=== PATIENT | female | born 1940 | race Hispanic/Latino ===

== ENCOUNTER 2020-04-11 17:58 | Emergency (ER) | payer OTHER ==
[~2020-04-11] VITALS: Ht 160 cm; Wt 65.8 kg
[~2020-04-11 17:58] MED LIST: ANASTROZOLE1 MG PO; BENAZEPRIL-HCT1 EAC1 PO; COLACE100 MG PO; GLIMEPIRIDE2 MG PO; KRISTALOSE20 GM PO; MACRODANTIN100 MG PO; NIFEDIPINE ER30 M1 PO; SENNA LAXATIVE8.6 MG PO; ULTRAM 50MG50 MG PO; ULTRAM50 MG PO; ZOFRAN ODT4 MG PO
[2020-04-11 19:43] LABS: BASOPHILS # (AUTO) 0.1 (0.0-0.1); BASOPHILS % 0.7 % (0.0-1.0); EOSINOPHILS # (AUTO) 0.1 (0.0-0.4); EOSINOPHILS % 0.7 % (0.0-6.0); HEMATOCRIT 41.5 % (34.2-44.1); HEMOGLOBIN 13.2 g/dL (12.0-16.0); LYMPHOCYTES # (AUTO) 1.4 (1.0-3.2); LYMPHOCYTES % 20.2 % (18.0-39.1); MEAN CORPUSCULAR HGB CONC 31.8 g/dL (31-35); MEAN CORPUSCULAR VOLUME 88.1 fL (81-99); MONOCYTES # (AUTO) 0.7 (0.2-0.8); MONOCYTES % 10.5 % (4.4-11.3); NEUTROPHILS # (AUTO) 4.6 (2.1-6.9); NEUTROPHILS % 66.9 % (38.7-80.0); PLATELET COUNT 163 x10e3/uL (140-360); RED BLOOD COUNT 4.71 x10e6/uL (3.6-5.1)
--- NOTE | 2020-04-11 19:56 | Diagnostic Imaging Report ---
CT BRAIN WO HISTORY: Trauma COMPARISON: None. Technique: Noncontrast axial scans were obtained from skull base to the vertex. Coronal and sagittal reconstructions obtained from the axial data. One or more of the following dose reduction techniques were used: Automated exposure control, adjustment of the mA and/or kV according to patient size, and/or utilization of iterative reconstruction technique. DISCUSSION: Scalp/Skull: Unremarkable. Brain sulci: Mildly prominent. Ventricles: Compensatory dilatation. Extra-axial spaces: No masses or fluid collections. Carotid siphon calcifications are present. Parenchyma: Mild bilateral deep white matter hypodensity is likely chronic microvascular ischemic change. 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 Otherwise, no masses, hemorrhage, or large vascular territory acute infarct. Dural sinuses: No abnormal densities. Sellar/Suprasellar region: Intact. Skull base: Intact. Incidental findings: None. IMPRESSION: 1. No acute intracranial abnormalities. 2. Mild supratentorial chronic microvascular ischemic change. Mild generalized cerebral volume loss. Signed by: Dr. Sukhdev Calvillo M.D. on 04/11/2020 7:52 PM
[2020-04-11 19:57] LABS: INR 0.85; PROTHROMBIN TIME 12.1 seconds (11.9-14.5)
[2020-04-11 20:01] LABS: CLARITY,URINE CLEAR (CLEAR); COLOR,URINE YELLOW (YELLOW)
[2020-04-11 20:02] LABS: BILIRUBIN,URINE NEGATIVE (NEGATIVE); KETONES,URINE NEGATIVE (NEGATIVE); LEUKOCYTE ESTERASE ,URINE NEGATIVE (NEGATIVE); NITRITE,URINE NEGATIVE (NEGATIVE); PROTEIN,URINE DIPSTICK NEGATIVE (NEGATIVE); URINE UROBILINOGEN 0.2 mg/dL (0.2 - 1)
[2020-04-11 20:04] LABS: ALANINE AMINOTRANSFERASE 20 IU/L (0-55); ALBUMIN 3.7 g/dL (3.5-5.0); ALKALINE PHOSPHATASE 77 IU/L (40-150); ANION GAP 11.8 mmol/L (8-16); BLOOD UREA NITROGEN 21 mg/dL (7-26); BUN/CREATININE RATIO 19 (6-25); CALCIUM 9.9 mg/dL (8.4-10.2); CARBON DIOXIDE 27 mmol/L (22-29); CHLORIDE 104 mmol/L (98-107); CREATINE KINASE 26 IU/L (29-168); EST GLOMERULAR FILTRATION RATE 48 ML/MIN (60-); GLUCOSE 257 mg/dL (74-118); POTASSIUM 3.8 mmol/L (3.5-5.1); SODIUM 139 mmol/L (136-145)
--- NOTE | 2020-04-11 20:05 | Diagnostic Imaging Report ---
EXAMINATION: CHEST SINGLE (PORTABLE) INDICATION: Chest pain COMPARISON: 07/19/2017 FINDINGS: TUBES and LINES: None. LUNGS: Hyperinflated lungs. Mid to upper lung lucencies. No consolidations. PLEURA: No pleural effusion or pneumothorax. HEART AND MEDIASTINUM: The cardiomediastinal silhouette is borderline enlarged. Aortic calcifications. BONES AND SOFT TISSUES: No acute osseous lesion. Soft tissues are unremarkable. UPPER ABDOMEN: No free air under the diaphragm. IMPRESSION: Findings compatible with pulmonary emphysema. Borderline cardiomegaly. Signed by: Daniel Simeon DO on 04/11/2020 8:01 PM
--- NOTE | 2020-04-11 20:07 | Diagnostic Imaging Report ---
CT CERVICAL SPINE WO HISTORY: Trauma COMPARISON: Chest radiograph 07/19/2017 TECHNIQUE: CT of the cervical spine without contrast. Sagittal and coronal reformations were created. One or more of the following dose reduction techniques were used: Automated exposure control, adjustment of the mA and/or kV according to patient size, and/or utilization of iterative reconstruction technique. FINDINGS: Bone demineralization limits evaluation. Cervical lordosis is straightened. There is no significant scoliosis. Punctate calcific density is seen along the right transverse ligament at C1. Otherwise, no definite acute fracture or compression deformity is seen. The craniocervical junction is intact. No gross spinal canal masses are seen. The paravertebral and paraspinal soft tissues are unremarkable. Mild multilevel spondylosis is most prominent at C5-C6. Multilevel prominent facet arthrosis is present, left side greater than right. There is associated grade 1 anterolisthesis of C4 on C5. Prominent atlantoaxial arthrosis is present as well. Partially imaged, partially calcified mass at the left lung apex measures up to 3 cm in transverse dimension. Prominent bilateral carotid bulb calcified plaque is present. IMPRESSION: 1. Punctate calcific density along the right transverse ligament at C1 may be due to an age-indeterminate avulsion fracture or ligamentous calcification. 2. Otherwise, no acute osseous abnormalities. 3. Mild multilevel spondylosis, most prominent at C5-C6. Grade 1 anterolisthesis of C4 on C5 due to left facet arthrosis. 4. Partially imaged, partially calcified mass in the left lung apex could be related to scarring. Further evaluation with chest CT is recommended. Signed by: Dr. Sukhdev Calvillo M.D. on 04/11/2020 8:04 PM
[2020-04-11 20:14] LABS: EPITHELIAL CELLS,URINE MODERATE /LPF; RBC,URINE 0-5 /HPF (0-5)
[2020-04-11 20:15] LABS: BACTERIA,URINE FEW /HPF
--- NOTE | 2020-04-11 23:47 | Emergency Department Note ---
History of Present Illnes History of Present Illness Chief Complaint: Laceration History of Present Illness This is a 79 year old female WITH COMPLAINTS OF FALL; STATES DOES NOT REMEMBER WHAT HAPPENED. PATIENT PRESENTS WITH A LARGE LEFT HAND SKIN TEAR, BLEEDING CONTROLLED. FALL WITNESSED BY , PT STATES SHE DOES RMEMBER FALLING BUT NOT HOW IT HAPPENED OR WHAT CAUSED IT. 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 Any updates have been documented here. Past Medical History Recent Fever: No Clinical Suspicion of Infectio: No New/Unexplained Change in Ment: No Past Medical History: Hypertension, Diabetes, Osteoarthritis Other Medical History: BREAST CANCER UTERINE TUMOR REMOVED Past Surgical History: Hysterectomy Other Surgery: VAGINAL HYST BLADDER LIFT VAGINAL WALL REPAIR UTERINE TUMOR REMOVED Sling removed Social History Smoking Cessation: Current every day smoker Alcohol Use: None Any Illegal Drug Use: No Family History Family history of heart diseas: No Other Last Tetanus: UNK Review of Systems Review of Systems Constitutional: Reports no symptoms EENTM: Reports no symptoms Cardiovascular: Reports no symptoms Respiratory: Reports no symptoms Gastrointestinal: Reports no symptoms Genitourinary: Reports no symptoms Musculoskeletal: Reports as per HPI Integumentary: Reports as per HPI Neurological: Reports no symptoms Psychological: Reports no symptoms Endocrine: Reports no symptoms Hematological/Lymphatic: Reports no symptoms Physical Exam Related Data Allergies: Coded Allergies: No Known Allergies (Unverified , 07/11/17) Triage Vital Signs Vital Signs Date Time Temp Pulse Resp B/P (MAP) Pulse Ox O2 Delivery O2 Flow Rate FiO2 04/11/20 18:19 97.1 64 18 205/71 98 Vital signs reviewed: Yes Physical Exam CONSTITUTIONAL Constitutional: Present well-developed, Present well-nourished HENT HENT: Present normocephalic, Present oropharynx clear/moist, Present nose normal, Present other (SMALL CONTUSION LEFT POSTERIOR HEAD) HENT L/R: Present left ext ear normal, Present right ext ear normal EYES Eyes: Reports PERRL, Reports conjunctivae normal NECK Neck: Present ROM normal PULMONARY Pulmonary: Present effort normal, Present breath sounds normal CARDIOVASCULAR Cardiovascular: Present regular rhythm, Present heart sounds normal, Present capillary refill normal, Present normal rate GASTROINTESTINAL Abdominal: Present soft, Present nontender, Present bowel sounds normal GENITOURINARY Genitourinary: Present exam deferred SKIN Skin: Present warm, Present dry MUSCULOSKELETAL Musculoskeletal: Present other (BRUISNG AND SKIN TEAR TO LEFT DORSAL HAND, NO PAIN WITH ROM, NO DEFORMITY) NEUROLOGICAL Neurological: Present alert, Present oriented x 3, Present no gross motor or sensory deficits PSYCHOLOGICAL Psychological: Present mood/affect normal, Present judgement normal Results Laboratory Result Diagram: 04/11/20184904/11/201849 Laboratory Laboratory Tests Test 04/11/20 18:50 White Blood Count 6.93 x10e3/uL (4.8-10.8) Red Blood Count 4.71 x10e6/uL (3.6-5.1) Hemoglobin 13.2 g/dL (12.0-16.0) Hematocrit 41.5 % (34.2-44.1) Mean Corpuscular Volume 88.1 fL (81-99) Mean Corpuscular Hemoglobin 28.0 pg (28-32) Mean Corpuscular Hemoglobin Concent 31.8 g/dL (31-35) Red Cell Distribution Width 12.0 % (11.7-14.4) Platelet Count 163 x10e3/uL (140-360) Neutrophils (%) (Auto) 66.9 % (38.7-80.0) Lymphocytes (%) (Auto) 20.2 % (18.0-39.1) Monocytes (%) (Auto) 10.5 % (4.4-11.3) Eosinophils (%) (Auto) 0.7 % (0.0-6.0) Basophils (%) (Auto) 0.7 % (0.0-1.0) Neutrophils # (Auto) 4.6 (2.1-6.9) Lymphocytes # (Auto) 1.4 (1.0-3.2) Monocytes # (Auto) 0.7 (0.2-0.8) Eosinophils # (Auto) 0.1 (0.0-0.4) Basophils # (Auto) 0.1 (0.0-0.1) Absolute Immature Granulocyte (auto 0.07 x10e3/uL (0-0.1) Prothrombin Time 12.1 seconds (11.9-14.5) Prothromb Time International Ratio 0.85 Activated Partial Thromboplast Time 27.0 seconds (23.8-35.5) Urine Color Yellow (YELLOW) Urine Clarity Clear (CLEAR) Urine pH 6 (5 - 7) Urine Specific [place] >=1.030 (1.010-1.025) Urine Protein Negative (NEGATIVE) Urine Glucose (UA) 2+ (NEGATIVE) Urine Ketones Negative (NEGATIVE) Urine Blood Negative (NEGATIVE) Urine Nitrite Negative (NEGATIVE) Urine Bilirubin Negative (NEGATIVE) Urine Urobilinogen 0.2 mg/dL (0.2 - 1) Urine Leukocyte Esterase Negative (NEGATIVE) Urine RBC 0-5 /HPF (0-5) Urine WBC 11-20 /HPF (0-5) Urine Epithelial Cells Moderate /LPF (NONE) Urine Bacteria Few /HPF (NONE) Sodium Level 139 mmol/L (136-145) Potassium Level 3.8 mmol/L (3.5-5.1) Chloride Level 104 mmol/L (98-107) Carbon Dioxide Level 27 mmol/L (22-29) Anion Gap 11.8 mmol/L (8-16) Blood Urea Nitrogen 21 mg/dL (7-26) Creatinine 1.10 mg/dL (0.57-1.11) Estimat Glomerular Filtration Rate 48 ML/MIN (60-) BUN/Creatinine Ratio 19 (6-25) Glucose Level 257 mg/dL (74-118) Calcium Level 9.9 mg/dL (8.4-10.2) Total Bilirubin 0.3 mg/dL (0.2-1.2) Aspartate Amino Transf (AST/SGOT) 22 IU/L (5-34) Alanine Aminotransferase (ALT/SGPT) 20 IU/L (0-55) Alkaline Phosphatase 77 IU/L (40-150) Creatine Kinase 26 IU/L (29-168) Creatine Kinase MB 1.20 ng/mL (0-5.0) Troponin I < 0.001 ng/mL (0-0.300) B-Type Natriuretic Peptide 75.9 pg/mL (0-100) Total Protein 7.5 g/dL (6.5-8.1) Albumin 3.7 g/dL (3.5-5.0) Globulin 3.8 g/dL (2.3-3.5) Albumin/Globulin Ratio 1.0 (0.8-2.0) Lab results reviewed: Yes Imaging Imaging results reviewed: Yes Impressions CT CERVICAL SPINE IMPRESSION: 1. Punctate calcific density along the right transverse ligament at C1 may be due to an age-indeterminate avulsion fracture or ligamentous calcification. 2. Otherwise, no acute osseous abnormalities. 3. Mild multilevel spondylosis, most prominent at C5-C6. Grade 1 anterolisthesis of C4 on C5 due to left facet arthrosis. 4. Partially imaged, partially calcified mass in the left lung apex could be related to scarring. Further evaluation with chest CT is recommended. Signed by: Dr. Sukhdev Calvillo M.D. on 04/11/2020 8:[address] BRAIN IMPRESSION: 1. No acute intracranial abnormalities. 2. Mild supratentorial chronic microvascular ischemic change. Mild generalized cerebral volume loss. Signed by: Dr. Sukhdev Calvillo M.D. on 04/11/2020 7:52 PM EXAMINATION: CHEST SINGLE (PORTABLE) INDICATION: Chest pain COMPARISON: 07/19/2017 FINDINGS: TUBES and LINES: None. LUNGS: Hyperinflated lungs. Mid to upper lung lucencies. No consolidations. PLEURA: No pleural effusion or pneumothorax. HEART AND MEDIASTINUM: The cardiomediastinal silhouette is borderline enlarged. Aortic calcifications. BONES AND SOFT TISSUES: No acute osseous lesion. Soft tissues are unremarkable. UPPER ABDOMEN: No free air under the diaphragm. IMPRESSION: Findings compatible with pulmonary emphysema. Borderline cardiomegaly. Signed by: Daniel Simeon DO on 04/11/2020 8:01 PM Dictated By: DANIEL SIMEON DO 00 Transcribed By: TYRON on 04/11/202000 Assessment & Plan Medical Decision Making MDM PT S/P FALL WITH HEAD CONTUSION, CT BRAIN, CT C SPINE, CXR ORDERED TO EVAL FOR FRACTURES, INTRACRANIAL INJURY Assessment & Plan Final Impression: (1) Contusion of head (2) Skin tear of left hand without complication Depart Disposition: HOME, SELF-CARE Last Vital Signs Date Time Temp Pulse Resp B/P (MAP) Pulse Ox O2 Delivery O2 Flow Rate FiO2 04/11/20 19:32 97.1 62 18 193/69 98 Home Meds Reported Medications Ondansetron (ZOFRAN ODT) 4 Mg Tab.rapdis, 4 MG PO Q4HR for VOMITING, TAB 07/22/17 Sennosides (SENNA LAXATIVE) 8.6 Mg Tablet, 1 TAB PO BID 07/22/17 Nifedipine (NIFEDIPINE ER) 30 Mg Tab.er.24, 30 MG PO BID 07/22/17 Nitrofurantoin Macrocrystal (MACRODANTIN) 100 Mg Capsule, 100 MG PO DAILY, CAP 07/22/17 Tramadol Hcl (ULTRAM) 50 Mg Tablet, 50 MG PO Q4HR PRN for PAIN, TAB 07/19/17 Anastrozole (ANASTROZOLE) 1 Mg Tablet, 1 MG PO DAILY 07/10/17 Glimepiride (GLIMEPIRIDE) 2 Mg Tablet, 4 MG PO DAILY, TAB 07/10/17 FIORELLA CISNEROS MD Apr 11, 2020 23:47
--- NOTE | 2020-04-12 00:25 | NUR ---
Wound to left arm irrigated, cleaned and wrapped at this time.
[2020-04-12] MEDS ORDERED: NEOMYCIN/POLYMYX/BACITR OINT 0.9 GM PKT ONE (00:27)
[2020-04-12] MEDS ORDERED: NEOMYCIN/POLYMYX/BACITR OINT 0.9 GM PKT TOP ONE (00:30)
== END 2020-04-12 00:35 | disposition home or self-care (01) ==
LOC: ER 17:58
DX: S00.83XA Contusion of other part of head, initial encounter (principal); S61.412A Laceration without foreign body of left hand, initial encounter; W18.30XA Fall on same level, unspecified, initial encounter; I10 Essential (primary) hypertension; E11.9 Type 2 diabetes mellitus without complications; Z85.3 Personal history of malignant neoplasm of breast
CPT/HCPCS: 36415; 70450; 71045; 72125; 80053; 81001; 82550; 82553; 83880; 84484; 85025; 85610; 85730; 93005; 99284

== ENCOUNTER 2021-06-14 05:36 | Observation (INO) | payer OTHER ==
[2021-06-13 08:15] LABS: BASOPHILS % 0.7 % (0.0-1.0); EOSINOPHILS # (AUTO) 0.1 (0.0-0.4); EOSINOPHILS % 1.2 % (0.0-6.0); HEMATOCRIT 41.8 % (34.2-44.1); HEMOGLOBIN 13.1 g/dL (12.0-16.0); LYMPHOCYTES # (AUTO) 1.5 (1.0-3.2); LYMPHOCYTES % 24.7 % (18.0-39.1); MEAN CORPUSCULAR HEMOGLOBIN 28.4 pg (28-32); MEAN CORPUSCULAR HGB CONC 31.3 g/dL (31-35); MEAN CORPUSCULAR VOLUME 90.5 fL (81-99); MONOCYTES # (AUTO) 0.7 (0.2-0.8); MONOCYTES % 12.3 % (4.4-11.3); NEUTROPHILS # (AUTO) 3.7 (2.1-6.9); NEUTROPHILS % 60.6 % (38.7-80.0); PLATELET COUNT 158 x10e3/uL (140-360); RED BLOOD COUNT 4.62 x10e6/uL (3.6-5.1); RED CELL DISTRIBUTION WIDTH 12.4 % (11.7-14.4)
[2021-06-13 08:44] LABS: ANION GAP 14.6 mmol/L (8-16); CALCIUM 9.8 mg/dL (8.4-10.2); CREATININE, SERUM 0.8 mg/dL (0.57-1.11); POTASSIUM 3.6 mmol/L (3.5-5.1)
[~2021-06-14] VITALS: Ht 162.6 cm; Wt 65.3 kg
[~2021-06-14 05:36] MED LIST changes: +ATORVASTATIN CA20 MG PO; +DOXYCYCLINE HY100 MG PO
[2021-06-14] MEDS ORDERED: GABAPENTIN 300 MG CAP ONE (06:31)
[2021-06-14] MEDS ORDERED: SODIUM CHLORIDE 0.9% 50ML 0 ML ONE (06:31)
[2021-06-14] MEDS ORDERED: DEXAMETHASONE SOD PHOS 10 MG/1 ML VIAL ONE (06:31)
[2021-06-14] MEDS ORDERED: CELECOXIB 200 MG CAP ONE (06:31)
[2021-06-14] MEDS ORDERED: Vancomycin IV 500 MG ONE ×2 (07:02→07:04)
[2021-06-14] MEDS ORDERED: SODIUM CHLORIDE 0.9% 100 ML ONE (07:03)
[2021-06-14] MEDS ORDERED: TRANEXAMIC ACID 1,000 MG/10 ML ML ONE (07:03)
[2021-06-14] MEDS ORDERED: SODIUM CHLORIDE 0.9% 500ML 500 ML ONE (07:04)
[2021-06-14] MEDS ORDERED: ROPIVACAINE 246.25 MG, EPINEPHRINE HCL 1:1000 1ML 0.5 MG, CLONIDINE HCL 0.08 MG, KETORO... INJ ONE ×5 (08:00)
[2021-06-14] MEDS ORDERED: ACETAMINOPHEN 650 MG SUPP PR PRN (09:00)
[2021-06-14] MEDS ORDERED: DIPHENHYDRAMINE HCL INJ 50 MG/ML VIAL IV PRN (09:00)
[2021-06-14] MEDS ORDERED: SODIUM CHLORIDE 0.9% 1000ML 1,000 ML IV SCH (09:00)
[2021-06-14] MEDS ORDERED: HYDROCODONE/APAP 7.5MG-325MG 1 EA TAB PO PRN (09:00)
[2021-06-14] MEDS: ASPIRIN 325 MG TAB PO SCH ×2 (09:00→17:25)
[2021-06-14] MEDS ORDERED: ONDANSETRON HCL INJ 2MG/ML 2ML 2 MG/ML VIAL IV PRN (09:00)
[2021-06-14] MEDS: CELECOXIB 100 MG CAP PO SCH ×2 (09:00→17:25)
[2021-06-14] MEDS ORDERED: HYDROCODONE/APAP 5MG-325MG TAB PO PRN (09:00)
[2021-06-14] MEDS ORDERED: KETOROLAC TROMETHAMINE 30 MG/ML VIAL IV PRN (09:00)
[2021-06-14] MEDS ORDERED: DOCUSATE SODIUM 100 MG CAP PO PRN (09:00)
[2021-06-14] MEDS ORDERED: FENTANYL CITRATE/PF 100MCG/2 ML INJ ONE (09:49)
[2021-06-14 11:08] VITALS: BP 161/62
[2021-06-14 11:34] VITALS: BP 161/62
[2021-06-14] MEDS ORDERED: Cefazolin 1 GM in SODIUM CHLORIDE 0.9% 50ML 50 ML IV SCH (14:00)
[2021-06-14 14:58] LABS: BASOPHILS % 0.2 % (0.0-1.0); HEMATOCRIT 33.6 % (34.2-44.1); HEMOGLOBIN 10.6 g/dL (12.0-16.0); LYMPHOCYTES # (AUTO) 0.6 (1.0-3.2); LYMPHOCYTES % 6.4 % (18.0-39.1); MEAN CORPUSCULAR HEMOGLOBIN 28.6 pg (28-32); MEAN CORPUSCULAR HGB CONC 31.5 g/dL (31-35); MEAN CORPUSCULAR VOLUME 90.6 fL (81-99); MONOCYTES # (AUTO) 0.3 (0.2-0.8); MONOCYTES % 3.3 % (4.4-11.3); NEUTROPHILS # (AUTO) 7.6 (2.1-6.9); NEUTROPHILS % 87.9 % (38.7-80.0); PLATELET COUNT 128 x10e3/uL (140-360); RED BLOOD COUNT 3.71 x10e6/uL (3.6-5.1); RED CELL DISTRIBUTION WIDTH 12.3 % (11.7-14.4)
[2021-06-14 15:27] VITALS: BP 99/46
[2021-06-14 15:43] LABS: ANION GAP 16.2 mmol/L (8-16); CALCIUM 8.1 mg/dL (8.4-10.2); CREATININE, SERUM 1.17 mg/dL (0.57-1.11); POTASSIUM 4.2 mmol/L (3.5-5.1)
[2021-06-14] MEDS ORDERED: DEXTROSE 50% SYRINGE 50 ML IV PRN (15:45)
[2021-06-14] MEDS ORDERED: INSULIN LISPRO 100 UNIT/1 ML 3ML VIAL SQ SCH (16:30)
[2021-06-14] MEDS ORDERED: ONDANSETRON HCL 4 MG ORAL DISINTEGRATING TAB PO PRN (18:45)
[2021-06-14] MEDS ORDERED: ZOLPIDEM TARTRATE 5 MG TAB PO PRN (21:00)
[2021-06-15] MEDS ORDERED: ACETAMINOPHEN 1000 MG/100 ML IV PRN (09:00)
== END 2021-06-14 19:03 | disposition home or self-care (01) ==
LOC: OR 05:36 → PACU V 09:00 → MED/SURG 10:31
PROVIDERS: ADMIT Specialist; ATTEND Specialist
DX: M17.11 Unilateral primary osteoarthritis, right knee (principal); Z20.822 Contact with and (suspected) exposure to COVID-19; Z01.818 Encounter for other preprocedural examination; I10 Essential (primary) hypertension; E11.9 Type 2 diabetes mellitus without complications
CPT/HCPCS: 27447; 36415 ×2; 71046; 73560; 80048 ×2; 82948; 85025 ×2; 86850; 86900; 86920 ×2; 97110; 97116 ×2; 97162; C1713 ×3; C1776 ×2; G0378; J0171; J0690; J1100; J1885; J2795; J3010; J3370; J7040; J7050; U0002

== ENCOUNTER → 2021-07-01 | Outpatient (CLI) | payer OTHER ==
[~2021-07-01] MED LIST changes: +IOPAMIDOL 370 MG/ML 200 ML INFUS..BTL INJ ONE; +SODIUM CHLORIDE 0.9% 50ML 50 ML ONE
== END ==
LOC: CT 11:24
PROVIDERS: ATTEND Family Medicine
DX: R93.89 Abnormal findings on diagnostic imaging of other specified body structures (principal); E85.3 Secondary systemic amyloidosis
CPT/HCPCS: 71260; Q9967

== ENCOUNTER → 2022-02-08 | Outpatient (CLI) | payer OTHER ==
[~2022-02-08] MED LIST changes: -IOPAMIDOL 370 MG/ML 200 ML INFUS..BTL INJ ONE; -SODIUM CHLORIDE 0.9% 50ML 50 ML ONE
== END ==
LOC: CT 09:08
PROVIDERS: ATTEND Family Medicine
DX: R91.1 Solitary pulmonary nodule (principal); J84.10 Pulmonary fibrosis, unspecified
CPT/HCPCS: 71250